=== PATIENT | male | born 2000 | race Two or more races ===

== ENCOUNTER 2021-07-07 17:59 | Emergency (ER) | payer SELFPAY ==
[~2021-07-07] VITALS: Ht 172.7 cm; Wt 68.0 kg
[2021-07-07 20:16] VITALS: BP 127/80
== END 2021-07-07 22:23 | disposition home or self-care (01) ==
LOC: EDBD 18:01 → ER 18:01
DX: S02.85XA Fracture of orbit, unspecified, initial encounter for closed fracture (principal); Y08.89XA Assault by other specified means, initial encounter; Y93.89 Activity, other specified; Y92.89 Other specified places as the place of occurrence of the external cause; Y99.8 Other external cause status
CPT/HCPCS: 70486